=== PATIENT | male | born 1960 | race African-American/Black ===

== ENCOUNTER → 2016-10-01 | Outpatient (CLI) | payer OTHER ==
--- NOTE | 2016-10-01 21:56 | MR ---
EXAMINATION TYPE: MR lumbar spine wo con DATE OF EXAM: 10/01/2016 COMPARISON: 03/28/2015 HISTORY: LBP, LLE radic x 3 weeks, no trauma/surgery CONTRAST: 0 mL intravenous MultiHance. TECHNIQUE: Multiplanar, multisequence images of the lumbar spine were acquired. FINDINGS: L5-S1: There is moderate disc bulge with moderate anterior thecal sac compression. No AP spinal canal stenosis present. Mild facet hypertrophy is present. Neural foramen are patent. L4-L5: Minimal grade 1 spondylolisthesis is present. There is disc uncovering. This has mild anterior thecal sac contact. Facet hypertrophy is present. There is mild right foraminal narrowing. No spinal canal stenosis is present. L3-L4: No significant disc bulge or disc herniation. No spinal canal stenosis. No foraminal stenosi s. . L2-L3: Disc bulge may has some subligamentous disc extension. This has mild anterior thecal sac compr ession No spinal canal stenosis. No foraminal stenosis. L1-L2: No significant disc bulge or disc herniation. No spinal canal stenosis. No foraminal stenosi s. Neural foramen are patent. T12-L1: No significant disc bulge or disc herniation. No spinal canal stenosis. No foraminal stenos is. Neural foramen are patent. Cord terminates at the L1 level. There may be some spinal lipomatosis in the posterior spinal canal. IMPRESSION: 1. Disc bulging with moderate anterior thecal sac compression L5-S1. This appears less prominent than the comparison study. 2. Interval development of a minimal grade 1 spondylolisthesis with disc uncovering L4 on L5. 3. Mild disc bulge with anterior thecal sac compression L2-L3. No spinal canal stenosis present.
== END | disposition home or self-care (01) ==
LOC: RADMRIMAIN 19:48
PROVIDERS: ATTEND Family Medicine
DX: M51.16 Intervertebral disc disorders with radiculopathy, lumbar region (principal); M51.17 Intervertebral disc disorders with radiculopathy, lumbosacral region; M43.16 Spondylolisthesis, lumbar region
CPT/HCPCS: 72148

== ENCOUNTER 2016-12-20 11:48 | Emergency (ER) | payer OTHER ==
[2016-12-20 12:03] VITALS: BP 141/71; PULSE 70; RESP 16; TEMP 98.8
[2016-12-20] MEDS ORDERED: PROPARACAINE 0.5% OPHTH DROPS 15 ML BTL LEFT EYE STA (12:09)
--- NOTE | 2016-12-20 12:17 | ED ---
Lower Extremity Injury HPI - General Chief Complaint: Extremity Injury, Lower Stated Complaint: ankle pain Time Seen by Provider: 12/20/16 12:04 Source: patient Mode of arrival: ambulatory Limitations: no limitations - History of Present Illness Initial Comments: 56-year-old male patient presents to emergency department today with complaints of right ankle pain and swelling, as well as left eye redness. Patient states that his ankle started to hurt yesterday. He states that today the pain has worsened and the ankle has started to swell. Patient states he does have some tingling in his right heel. Patient states the pain is worse with walking. Patient denies any injury to the ankle however states that he does have osteogenesis imperfecta and has had fractures in the past without injury. Patient states that his right eye symptoms started yesterday morning when he woke up. Patient states that it feels scratchy and irritated. He states he is having yellow drainage and wakes up with crusts in the morning. He denies any use of contact lenses. Patient denies any fever, chills, headache, neck pain, back pain, chest pain, shortness of breath, dizziness, weakness, abdominal pain , nausea, vomiting, or difficulties with bowel movements or urination. - Related Data Home Medications Medication Instructions Recorded Confirmed Aspirin 81 mg PO DAILY 08/16/13 04/13/16 Carvedilol 25 mg PO BID 08/16/13 04/08/16 Furosemide [Lasix] 20 mg PO DAILY 08/16/13 04/08/16 Omeprazole [PriLOSEC] 20 mg PO AC-BRKFST 08/16/13 04/13/16 Potassium Gluconate 99 mg PO DAILY 08/16/13 04/08/16 Simvastatin [Zocor] 20 mg PO HS 08/16/13 04/13/16 Tamsulosin [Flomax] 0.4 mg PO DAILY 08/16/13 04/08/16 cloNIDine HCL [Catapres] 0.2 mg PO BID 08/16/13 04/08/16 Enalapril [Vasotec] 40 mg PO DAILY 04/08/16 04/08/16 Fenofibrate 160 mg PO DAILY 04/08/16 04/08/16 Magnesium Chloride [Slow Mag] 64 mg PO DAILY 04/08/16 04/08/16 metFORMIN HCL 1,000 mg PO BID 04/08/16 04/13/16 Previous Rx's Medication Instructions Recorded Hydrocodone/Acetaminophen [[place] 1 each PO Q4HR PRN #14 tab 03/06/14 5-325] Acetaminophen with Codeine 1 tab PO Q4H PRN #30 tab 04/13/16 [Tylenol w/codeine #3] Allergies Allergy/AdvReac Type Severity Reaction Status Date / Time No Known Allergies Allergy Verified 12/20/16 12:03 Review of Systems ROS Statement: Those systems with pertinent positive or pertinent negative responses have been documented in the HPI. ROS Other: All systems not noted in ROS Statement are negative. 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 had stent placed in tear duct. pancho eye sx for glaucoma Past Anesthesia/Blood Transfusion Reactions: No Reported Reaction Date of Last Stent Placement:: unknown Past Psychological History: Panic Disorder Smoking Status: Former smoker Past Alcohol Use History: None Reported Past Drug Use History: Marijuana - Past Family History Daughter(s) Family Medical History: Cancer Additional Family Medical History / Comment(s): leukemia Father Additional Family Medical History / Comment(s): OSTEOPOROSIS, ARTHRITIS 3 HIP RELPACEMENTS EACH SIDE Mother Family Medical History: Diabetes Mellitus General Exam Limitations: no limitations General appearance: alert, in no apparent distress Eye exam: Present: PERRL, EOMI, conjunctival injection (Right), other (No periorbital swelling. No current drainage noted. Fluorescein staining and Wood lamp examination to left eye reveals no abrasion, laceration or acute eye injury.). Absent: normal appearance, scleral icterus, periorbital swelling ENT exam: Present: normal exam, normal oropharynx, mucous membranes moist Neck exam: Present: normal inspection. Absent: tenderness, meningismus, lymphadenopathy Respiratory exam: Present: normal lung sounds bilaterally. Absent: respiratory distress, wheezes, rales, rhonchi, stridor Cardiovascular Exam: Present: regular rate, normal rhythm, normal heart sounds. Absent: systolic murmur, diastolic murmur, rubs, gallop, clicks Extremities exam: Present: full ROM, normal capillary refill, other (Mild swelling noted to the right ankle, especially around the right lateral malleolus. Cap refills less than 3 seconds. Increased pain with range of motion. Skin is normal for ethnicity, warm, and dry.). Absent: normal inspection, tenderness, pedal edema, joint swelling, calf tenderness Neurological exam: Present: alert, oriented X3, CN II-XII intact Psychiatric exam: Present: normal affect, normal mood Skin exam: Present: warm, dry, intact, normal color. Absent: rash Course Vital Signs 12/20/16 12:00 Temperature 98.8 F Pulse Rate 70 Respiratory 16 Rate Blood Pressure 141/71 O2 Sat by Pulse 100 Oximetry Medical Decision Making - Medical Decision Making 56-year-old male patient presented to emergency department today for evaluation of right ankle pain and right eye irritation. X-ray of the right ankle and foot were negative for any acute fracture however there did show some extensive degenerative changes. Patient was given an ankle stirrup brace and instructed to follow-up with the orthopedic physician in 7-10 days for repeat x-ray if pain symptoms persist. Did do a fluoroscein seen stain to the left eye which did not show any abrasion, laceration or eye injury. Patient will be treated for conjunctivitis with tobramycin drops every 4 hours. Patient instructed to follow-up with button facing machine operator if he continues to have problems. Patient instructed to return here immediately for any new, worsening, or concerning symptoms. Patient verbalizes understanding and agrees with this plan. - Radiology Data Radiology results: report reviewed, image reviewed Complete x-rays of the right ankle and right foot show osseous structures are demineralized. There is no acute fracture/dislocation evident in the right ankle. The ankle mortise appears within normal limits. There is sprang from the medial malleolus. There is spurring from the anterior aspect of the tibia. There are subchondral cystic change in the lateral malleolus. The overlying soft tissue appears unremarkable. There is no acute fracture or dislocation evident in the right foot. There is hallux valgus positioning first metatarsal phalangeal joint with mild to moderate spurring in joint space loss. There is Hind and midfoot sprain most prominent along the dorsal surface. Overlying soft tissues unremarkable. Impression by Dr. Morin shows demineralization and degenerative changes detailed above. Disposition Clinical Impression: Conjunctivitis, Right ankle pain Disposition: HOME SELF-CARE Condition: Good Instructions: Ankle Sprain (ED), Conjunctivitis (ED) Additional Instructions: Rest, ice, elevate the right lower extremity. Take pain medications as directed. Use ankle splint for comfort. If pain persists beyond 7-10 days obtained a repeat x-ray. Instill 2 drops of antibiotic solution to the left eye every 4 hours while awake, dizziness for one week. If you continue to have problems follow-up with the button facing machine operator. Follow up with her primary care physician for recheck in 1-2 days. Return here immediately for any new, worsening, or concerning symptoms. Referrals: Hudson Mantilla MD [Primary Care Provider] - 1-2 days Rosalia Grimm MD [STAFF PHYSICIAN] - 1-2 days Jackson Dias MD [Medical Doctor] - 1-2 days Time of Disposition: 12:57
--- NOTE | 2016-12-20 12:41 | XR ---
EXAMINATION TYPE: XR ankle complete RT, XR foot complete RT DATE OF EXAM: 12/20/2016 CLINICAL HISTORY: Pain TECHNIQUE: Frontal, lateral and oblique images of the right ankle and foot are obtained. COMPARISON: None. FINDINGS: Osseous structures are demineralized There is no acute fracture/dislocation evident in the right ankle. The ankle mortise appears within normal limits. There is spurring from the medial mall eolus. There is spurring from the anterior aspect of the tibia. There are subchondral cystic change i n the lateral malleolus. The overlying soft tissue appears unremarkable. There is no acute fracture or dislocation evident in the right foot. There is hallux valgus positioni ng first metatarsophalangeal joint with mild to moderate spurring and joint space loss. There is hind and midfoot spurring most prominent along dorsal surface. Overlying soft tissue is unremarkable. IMPRESSION: There is demineralization and degenerative change as detailed above.
[2016-12-20] MEDS ORDERED: TOBRAMYCIN 0.3% OPHTH DROPS 5 ML BTL LEFT EYE STA (12:52)
== END 2016-12-20 13:06 | disposition home or self-care (01) ==
LOC: EC 11:48
DX: H10.9 Unspecified conjunctivitis (principal); M25.571 Pain in right ankle and joints of right foot; K21.9 Gastro-esophageal reflux disease without esophagitis; E78.5 Hyperlipidemia, unspecified; I10 Essential (primary) hypertension; N42.9 Disorder of prostate, unspecified; F41.0 Panic disorder [episodic paroxysmal anxiety]; Z87.891 Personal history of nicotine dependence; Z79.84 Long term (current) use of oral hypoglycemic drugs; Z79.82 Long term (current) use of aspirin; Z79.899 Other long term (current) drug therapy
CPT/HCPCS: 73610; 73630; 99283; 29515; L4350

== ENCOUNTER → 2017-05-10 | Outpatient (CLI) | payer OTHER ==
--- NOTE | 2017-05-11 03:43 | MR ---
EXAMINATION TYPE: MR cervical spine wo con DATE OF EXAM: 05/10/2017 COMPARISON: NONE HISTORY: Neck Pain TECHNIQUE: Multiplanar, multisequence images of the cervical spine were acquired. Cervical vertebra have normal alignment. There is moderate narrowing of disc spaces throughout the ce rvical spine. There is spurring of the endplates. There are small posterior disc herniations at C2-3 C3-4 C5-6 C6-7. There is facet arthropathy at multiple levels. There is 7 mm spinal stenosis at C5-6. Brainstem is intact. Cervical spinal cord shows no evidence of edema. There is 6 mm spinal stenosis at C2-3. There is 7 mm spinal stenosis at C3-4. There is no compression fracture. I see no focal bone destruction. IMPRESSION: Moderate multilevel spondylosis. Multilevel cervical bony spinal stenosis. Multiple posterior cervica l disc herniations. The largest is at C2-3 on the left side. There is large uncovertebral spurring at C6-7 on the right side with neural foraminal impingement.
== END | disposition home or self-care (01) ==
LOC: RADMRIMAIN 18:04
PROVIDERS: ATTEND Psychiatry & Neurology Neurology
DX: M48.02 Spinal stenosis, cervical region (principal); M47.812 Spondylosis without myelopathy or radiculopathy, cervical region; M50.21 Other cervical disc displacement, high cervical region; M46.02 Spinal enthesopathy, cervical region; M25.80 Other specified joint disorders, unspecified joint
CPT/HCPCS: 72141

== ENCOUNTER 2018-07-07 19:14 | Emergency (ER) | payer OTHER ==
[2018-07-07 19:35] VITALS: RESP 18; TEMP 98.3
--- NOTE | 2018-07-07 20:08 | XR ---
PROCEDURE: XR forearm LT - 3V DATE AND TIME: 07/07/2018 7:55 PM CLINICAL INDICATION: PHH; Pain TECHNIQUE: Department protocol COMPARISON: 05/16/2011 FINDINGS: Architectural distortion consistent with multiple prior fracture noted as baseline. There is no fracture or malalignment, and the bones and joints and soft tissues are negative for acut e findings. 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 IMPRESSION: NO ACUTE PROCESS.
--- NOTE | 2018-07-07 20:22 | ED ---
Upper Extremity HPI - General Chief Complaint: Extremity Injury, Upper Stated Complaint: Lt arm injury Time Seen by Provider: 07/07/18 19:39 Source: patient, RN notes reviewed Mode of arrival: ambulatory Limitations: no limitations - History of Present Illness Initial Comments: 57-year-old male presents emergency Department with chief by the left arm in joshua. Patient states he was wrestling with his granddaughter in which she struck them in his left forearm. Patient states he noted swelling. Patient is concerned has he has no bowel disease and is had multiple fractures of his left arm. Patient has full range of motion of the left hand and wrist no difficulty. Denies any paresthesias. - Related Data Home Medications Medication Instructions Recorded Confirmed Aspirin 81 mg PO DAILY 08/16/13 07/07/18 Carvedilol 25 mg PO BID 08/16/13 07/07/18 Omeprazole [PriLOSEC] 20 mg PO AC-BRKFST 08/16/13 07/07/18 Potassium Gluconate 99 mg PO DAILY 08/16/13 07/07/18 Simvastatin [Zocor] 20 mg PO HS 08/16/13 07/07/18 Tamsulosin [Flomax] 0.4 mg PO DAILY 08/16/13 07/07/18 cloNIDine HCL [Catapres] 0.2 mg PO BID 08/16/13 07/07/18 Enalapril [Vasotec] 40 mg PO DAILY 04/08/16 07/07/18 Fenofibrate 160 mg PO DAILY 04/08/16 07/07/18 Magnesium Chloride [Slow Mag] 64 mg PO DAILY 04/08/16 07/07/18 metFORMIN HCL 1,000 mg PO BID 04/08/16 07/07/18 Baclofen [Lioresal] 10 mg PO TID 07/07/18 07/07/18 Celecoxib [CeleBREX] 200 mg PO DAILY 07/07/18 07/07/18 Cyanocobalamin [Vitamin B-12 1,000 mcg SQ WEEKLY 07/07/18 07/07/18 Injection] Ergocalciferol (Vitamin D2) 50,000 unit PO Q28D 07/07/18 07/07/18 [Drisdol] Furosemide [Lasix] 20 mg PO DAILY 07/07/18 07/07/18 HYDROcodone/APAP 10-325MG [[place] 1 tab PO TID 07/07/18 07/07/18 10-325] Multivitamins, Thera [Multivitamin 1 tab PO DAILY 07/07/18 07/07/18 (formulary)] Allergies Allergy/AdvReac Type Severity Reaction Status Date / Time No Known Allergies Allergy Verified 07/07/18 20:27 Review of Systems ROS Statement: Those systems with pertinent positive or pertinent negative responses have been documented in the HPI. ROS Other: All systems not noted in ROS Statement are negative. 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 had stent placed in tear duct. pancho eye sx for glaucoma Past Anesthesia/Blood Transfusion Reactions: No Reported Reaction Date of Last Stent Placement:: unknown Past Psychological History: Panic Disorder Smoking Status: Former smoker Past Alcohol Use History: None Reported Past Drug Use History: Marijuana - Past Family History Daughter(s) Family Medical History: Cancer Additional Family Medical History / Comment(s): leukemia Father Additional Family Medical History / Comment(s): OSTEOPOROSIS, ARTHRITIS 3 HIP RELPACEMENTS EACH SIDE Mother Family Medical History: Diabetes Mellitus General Exam Limitations: no limitations General appearance: alert, in no apparent distress Respiratory exam: Present: normal lung sounds bilaterally. Absent: respiratory distress, wheezes, rales, rhonchi, stridor Cardiovascular Exam: Present: regular rate, normal rhythm, normal heart sounds. Absent: systolic murmur, diastolic murmur, rubs, gallop, clicks Extremities exam: Present: other (Left forearm there is a noted area swelling, mildly tender, neurovascular intact limited range of motion of the left elbow, this is chronic) Course Vital Signs 07/07/18 19:33 Temperature 98.3 F Pulse Rate 69 Respiratory 18 Rate Blood Pressure 163/78 O2 Sat by Pulse 98 Oximetry Medical Decision Making - Medical Decision Making 57-year-old male presented for left arm injury. X-rays negative as read by radiologist. Patient we discharged return parameters were discussed. Disposition Clinical Impression: Contusion of left arm Disposition: HOME SELF-CARE Condition: Stable Instructions (If sedation given, give patient instructions): Contusion in Adults (ED) Additional Instructions: Please return to the Emergency Department if symptoms worsen or any other concerns. Is patient prescribed a controlled substance at d/c from ED?: No Referrals: Hudson Mantilla MD [Primary Care Provider] - 1-2 days Time of Disposition: 20:49
[2018-07-07 21:04] VITALS: BP 144/79; PULSE 61
== END 2018-07-07 21:04 | disposition home or self-care (01) ==
LOC: EC 19:14
DX: S40.022A Contusion of left upper arm, initial encounter (principal); E11.9 Type 2 diabetes mellitus without complications; K21.9 Gastro-esophageal reflux disease without esophagitis; N42.9 Disorder of prostate, unspecified; I10 Essential (primary) hypertension; E78.5 Hyperlipidemia, unspecified; Z95.1 Presence of aortocoronary bypass graft; Z95.5 Presence of coronary angioplasty implant and graft; Z95.818 Presence of other cardiac implants and grafts; Z96.653 Presence of artificial knee joint, bilateral; Z87.891 Personal history of nicotine dependence; Z79.82 Long term (current) use of aspirin; Z79.84 Long term (current) use of oral hypoglycemic drugs; Z79.1 Long term (current) use of non-steroidal anti-inflammatories (NSAID); Z79.891 Long term (current) use of opiate analgesic; Z79.899 Other long term (current) drug therapy; Y93.72 Activity, wrestling; W50.0XXA Accidental hit or strike by another person, initial encounter; Y92.009 Unspecified place in unspecified non-institutional (private) residence as the place of occurrence of the external cause
CPT/HCPCS: 99283

== ENCOUNTER 2019-09-21 10:06 | Emergency (ER) | payer OTHER ==
[2019-09-21 10:11] VITALS: RESP 18
--- NOTE | 2019-09-21 10:58 | ED ---
General Adult HPI - General Chief complaint: Extremity Injury, Upper Stated complaint: torn bicep Time Seen by Provider: 09/21/19 10:17 Source: patient, RN notes reviewed, old records reviewed Mode of arrival: ambulatory Limitations: no limitations - History of Present Illness Initial comments: 58 male patient presents to ED for chief complaint of left bicep and shoulder pain. Patient reports that he was playing catch with a baseball on Tuesday. Reports that he threw the ball from an awkward arm angle and began immediately having pain in his proximal bicep mid bicep and shoulder region. Reports pain with range of motion. Patient states that he was at his pain management doctor yesterday with an x-rays of the shoulder which were reportedly negative. Denies any other complaints. Systemic: Pt denies fatigue, fever/chills, rash. Pt denies weakness, night sweats, weight loss. Neuro: Pt denies headache, visual disturbances, syncope or pre-syncope. HEENT: Pt denies ocular discharge or irritation, otalgia, rhinorrhea, pharyngitis or notable lymphadenopathy. Cardiopulmonary: Pt denies chest pain, SOB, heart palpitations, dyspnea on exertion. Abdominal/GI: Pt denies abdominal pain, n/v/d. : Pt denies dysuria, burning w/ urination, frequency/urgency. Denies new onset urinary or bowel incontinence. Neuro: Pt denies new onset weakness, paresthesias. - Related Data Home Medications Medication Instructions Recorded Confirmed Aspirin 81 mg PO DAILY 08/16/13 07/07/18 Carvedilol 25 mg PO BID 08/16/13 07/07/18 Omeprazole [PriLOSEC] 20 mg PO AC-BRKFST 08/16/13 07/07/18 Potassium Gluconate 99 mg PO DAILY 08/16/13 07/07/18 Simvastatin [Zocor] 20 mg PO HS 08/16/13 07/07/18 Tamsulosin [Flomax] 0.4 mg PO DAILY 08/16/13 07/07/18 cloNIDine HCL [Catapres] 0.2 mg PO BID 08/16/13 07/07/18 Enalapril [Vasotec] 40 mg PO DAILY 04/08/16 07/07/18 Fenofibrate 160 mg PO DAILY 04/08/16 07/07/18 Magnesium Chloride [Slow Mag] 64 mg PO DAILY 04/08/16 07/07/18 metFORMIN HCL 1,000 mg PO BID 04/08/16 07/07/18 Baclofen [Lioresal] 10 mg PO TID 07/07/18 07/07/18 Celecoxib [CeleBREX] 200 mg PO DAILY 07/07/18 07/07/18 Cyanocobalamin [Vitamin B-12 1,000 mcg SQ WEEKLY 07/07/18 07/07/18 Injection] Ergocalciferol (Vitamin D2) 50,000 unit PO Q28D 07/07/18 07/07/18 [Drisdol] Furosemide [Lasix] 20 mg PO DAILY 07/07/18 07/07/18 HYDROcodone/APAP 10-325MG [[place] 1 tab PO TID 07/07/18 07/07/18 10-325] Multivitamins, Thera [Multivitamin 1 tab PO DAILY 07/07/18 07/07/18 (formulary)] Allergies Allergy/AdvReac Type Severity Reaction Status Date / Time No Known Allergies Allergy Verified 09/21/19 10:11 Review of Systems ROS Statement: Those systems with pertinent positive or pertinent negative responses have been documented in the HPI. ROS Other: All systems not noted in ROS Statement are negative. 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 had stent placed in tear duct. pancho eye sx for glaucoma Past Anesthesia/Blood Transfusion Reactions: No Reported Reaction Date of Last Stent Placement:: unknown Past Psychological History: Panic Disorder Smoking Status: Former smoker Past Alcohol Use History: None Reported Past Drug Use History: Marijuana - Past Family History Daughter(s) Family Medical History: Cancer Additional Family Medical History / Comment(s): leukemia Father Additional Family Medical History / Comment(s): OSTEOPOROSIS, ARTHRITIS 3 HIP RELPACEMENTS EACH SIDE Mother Family Medical History: Diabetes Mellitus General Exam - General Exam Comments Initial Comments: Constitutional: NAD, AOX3, Pt has pleasant affect. HEENT: NC/AT, trachea midline, neck supple, no lymphadenopathy. Posterior pharynx non erythematous, without exudates. External ears appear normal, without discharge. Mucous membranes moist. Eyes PERRLA, EOM intact. There is no scleral icterus. No pallor noted. Cardiopulmonary: RRR, no murmurs, rubs or gallops, no JVD noted. Lungs CTAB in anterior and posterior oakley. No peripheral edema. Abdominal exam: Abdomen soft and non-distended. Abdomen non-tender to palpation in all 4 quadrants. Bowel sounds active in LLQ. No hepatosplenomegaly. No ecchymosis Neuro: CN II-XII grossly intact. No nuchal rigidity. No raccon eyes, no chen sign, no hemotympanum. No cervical spinal tenderness. MSK: Left midshaft and proximal biceps region anterior shoulder mildly tender to palpation. Flexion extension of arm is intact with does cause discomfort. Active range of motion of shoulder slightly limited secondary to pain the patient is able to lift it. Neurovascularly intact. Radial pulse +2. Limitations: no limitations Course Vital Signs 09/21/19 10:09 Temperature 97.8 F Pulse Rate 63 Respiratory 18 Rate Blood Pressure 123/75 O2 Sat by Pulse 98 Oximetry Medical Decision Making - Medical Decision Making 58 male patient presents to ED for chief complaint of left bicep and shoulder pain. Patient reports that he was playing catch with a baseball on Tuesday. Reports that he threw the ball from an awkward arm angle and began immediately having pain in his proximal bicep mid bicep and shoulder region. Reports pain with range of motion. Patient states that he was at his pain management doctor yesterday with an x-rays of the shoulder which were reportedly negative. Denies any other complaints. Patient vital signs are stable, afebrile. Physical exam doesn't display mild tenderness to mid shaft biceps, proximal biceps and shoulder. Flexion and extension of left upper extremity is intact. Patient does have significant discomfort with it. Patient is able to raise his arms but this also causes discomfort to the left shoulder. Neurovascularly intact. Plain film the humerus was obtained. Fairly severe degenerative change left AC joint with marked spurring. There is additional marked spurring at the elbow joint redemonstrated. Overlying soft tissue. Within normal limits. Spoke with [facility] who recommended placing patient in a sling and they'll see him in the office. Will return to ED if condition worsens. Case discussed with Dr. Sepulveda. Disposition Clinical Impression: Arm sprain Narrative: suspected biceps injury Disposition: HOME SELF-CARE Condition: Stable Instructions (If sedation given, give patient instructions): Shoulder Sprain (ED) Additional Instructions: Continue to wear sling. Follow-up with Dr. Davis in the office today. Follow- up with primary care provider in 1-2 days. Return to ER if condition worsens. Is patient prescribed a controlled substance at d/c from ED?: No Referrals: Hudson Mantilla MD [Primary Care Provider] - 1-2 days Bryan Davis MD [STAFF PHYSICIAN] - 1-2 days
--- NOTE | 2019-09-21 11:17 | XR ---
EXAMINATION TYPE: XR humerus LT DATE OF EXAM: 09/21/2019 CLINICAL HISTORY: Pain. TECHNIQUE: Two views of the left humerus are obtained. COMPARISON: Prior left elbow x-ray May 16, 2011.. FINDINGS: There is no acute fracture or dislocation seen in the left humerus. Fairly severe degenera tive change left acromioclavicular joint with marked spurring. There is additional marked spurring a t the elbow joint redemonstrated. The overlying soft tissue appears within normal limits. IMPRESSION: As above.
[2019-09-21 12:04] VITALS: BP 133/83; PULSE 55; TEMP 98.2
== END 2019-09-21 12:00 | disposition home or self-care (01) ==
LOC: EC 10:06
DX: S43.402A Unspecified sprain of left shoulder joint, initial encounter (principal); E11.9 Type 2 diabetes mellitus without complications; K21.9 Gastro-esophageal reflux disease without esophagitis; E78.5 Hyperlipidemia, unspecified; I10 Essential (primary) hypertension; N42.9 Disorder of prostate, unspecified; F41.0 Panic disorder [episodic paroxysmal anxiety]; Z79.82 Long term (current) use of aspirin; Z79.84 Long term (current) use of oral hypoglycemic drugs; Z79.899 Other long term (current) drug therapy; Z87.891 Personal history of nicotine dependence; Z80.9 Family history of malignant neoplasm, unspecified; Z90.89 Acquired absence of other organs; Z95.5 Presence of coronary angioplasty implant and graft; Z95.1 Presence of aortocoronary bypass graft; Z96.653 Presence of artificial knee joint, bilateral; Z98.890 Other specified postprocedural states; X50.0XXA Overexertion from strenuous movement or load, initial encounter; Y93.64 Activity, baseball
CPT/HCPCS: 99284

== ENCOUNTER 2021-06-13 19:22 | Emergency (ER) | payer OTHER ==
[2021-06-13 19:28] VITALS: TEMP 98.1
[2021-06-13 20:01] LABS: Basophils % (A) 1 %; Eosinophils # (A) 0.2 k/uL (0-0.7); Eosinophils % (A) 3 %; HCT 39.4 % (39.0-53.0); HGB 13.2 gm/dL (13.0-17.5); Lymphocytes # (A) 1.6 k/uL (1.0-4.8); Lymphocytes % (A) 29 %; MCH 31.5 pg (25.0-35.0); MCHC 33.6 g/dL (31.0-37.0); MCV 93.9 fL (80.0-100.0); Mean Platelet Volume 7.7; Monocytes # (A) 0.2 k/uL (0-1.0); Monocytes % (A) 4 %; Neutrophils # (A) 3.5 k/uL (1.3-7.7); Neutrophils % (A) 63 %; Platelet Count 267 k/uL (150-450); RBC 4.19 m/uL (4.30-5.90); RDW 12.3 % (11.5-15.5); WBC 5.6 k/uL (3.8-10.6)
[2021-06-13 20:10] LABS: Albumin 4.2 g/dL (3.5-5.0); Calcium 8.8 mg/dL (8.4-10.2); Magnesium 1.7 mg/dL (1.6-2.3); Potassium 4.1 mmol/L (3.5-5.1); Total Bilirubin 0.7 mg/dL (0.2-1.3); Total Protein 7.1 g/dL (6.3-8.2)
[2021-06-13 20:22] LABS: INR 1.1 (<1.2); Prothrombin Time 12.1 sec (9.0-12.0)
[2021-06-13 20:25] LABS: Partial Thromboplastin Time 21.6 sec (22.0-30.0)
--- NOTE | 2021-06-13 21:16 | XR ---
EXAMINATION TYPE: XR chest 2V DATE OF EXAM: 06/13/2021 8:13 PM COMPARISON:Chest radiographs from 07/12/2015 TECHNIQUE: XR chest 2V Frontal and lateral views of the chest. CLINICAL INDICATION:Male, 60 years old with history of Chest Pain; FINDINGS: Lungs/Pleura: There is no evidence of pleural effusion, focal consolidation, or pneumothorax. Pulmonary vascularity: Unremarkable. Heart/mediastinum: Cardiomediastinal silhouette is unremarkable. Musculoskeletal: No acute osseous pathology. Midline sternotomy wires are noted and stable. IMPRESSION: No acute cardiopulmonary disease/process.
[2021-06-13] MEDS ORDERED: MORPHINE SULFATE 4 MG/ML SYRINGE IVP STA (22:25)
[2021-06-13] MEDS ORDERED: LABETALOL 5 MG/ML VIAL MDV IVP STA ×2 (22:43→23:35)
[2021-06-13] MEDS ORDERED: SODIUM CHLORIDE 0.9% 1,000 ML IV STA (22:43)
[2021-06-13] MEDS ORDERED: SODIUM CHLORIDE 0.9% 1,000 ML IV SCH (22:45)
[2021-06-13] MEDS ORDERED: cloNIDine HCL 0.2 MG TAB PO STA (22:48)
--- NOTE | 2021-06-13 23:16 | ED ---
Chest Pain HPI - General Chief Complaint: Chest Pain Stated Complaint: Chest Pain Time Seen by Provider: 06/13/21 22:07 Source: patient, family, RN notes reviewed, old records reviewed Mode of arrival: wheelchair Limitations: no limitations - History of Present Illness Initial Comments: a 60-year-old male DF for evaluation of chest pain. Patient does have history of dissection activity. Patient presents with both feels a bleeding chest pain left-sided chest around dinner time and been persistent since. Patient also be episode earlier in the day. Patient took a nitro night with minimal to no help. Patient still feeling occasional symptoms but they are lessening. No shortness of breath no sweating. Patient did not take his blood pressure medications today. Patient has no fevers cough or congestion. No recent travel history. Denies any trauma. MD Complaint: chest pain -: hour(s) Onset: during rest, after eating Pain Location: left chest Pain Radiation: none Severity: mild Severity scale (1-10): 3 Quality: tightness, aching Consistency: intermittent Improves With: nothing Worsens With: nothing Anginal Symptoms: other (none) Other Symptoms: palpitations Treatments Prior to Arrival: none, nitroglycerin - Related Data Home Medications Medication Instructions Recorded Confirmed Aspirin 81 mg PO DAILY 08/16/13 06/13/21 Carvedilol 25 mg PO BID 08/16/13 06/13/21 Omeprazole [PriLOSEC] 20 mg PO AC-BRKFST 08/16/13 06/13/21 Simvastatin [Zocor] 20 mg PO HS 08/16/13 06/13/21 Tamsulosin [Flomax] 0.4 mg PO BID 08/16/13 06/13/21 cloNIDine HCL [Catapres] 0.2 mg PO BID 08/16/13 06/13/21 Fenofibrate 160 mg PO DAILY 04/08/16 06/13/21 Magnesium Chloride [Slow Mag] 64 mg PO DAILY 04/08/16 06/13/21 Baclofen [Lioresal] 10 mg PO BID 07/07/18 06/13/21 Multivitamins, Thera [Multivitamin 1 tab PO DAILY 07/07/18 06/13/21 (formulary)] Atorvastatin [Lipitor] 20 mg PO HS 06/13/21 06/13/21 Furosemide [Lasix] 20 mg PO DAILY 06/13/21 06/13/21 HYDROcodone/APAP 7.5-325MG [[place] 1 tab PO TID PRN 06/13/21 06/13/21 7.5-325] Isosorbide Mononitrate ER [Imdur] 30 mg PO DAILY 06/13/21 06/13/21 Ketorolac [Toradol] 10 mg PO Q8H PRN 06/13/21 06/13/21 metFORMIN HCL 500 mg PO BID 06/13/21 06/13/21 Allergies Allergy/AdvReac Type Severity Reaction Status Date / Time No Known Allergies Allergy Verified 06/13/21 22:54 Review of Systems ROS Statement: Those systems with pertinent positive or pertinent negative responses have been documented in the HPI. ROS Other: All systems not noted in ROS Statement are negative. Past Medical History Past Medical History: Diabetes Mellitus, GERD/Reflux, Hyperlipidemia, Hypertension, Musculoskeletal Disorder, Prostate Disorder Additional Past Medical History / Comment(s): osteogenesis imperfecta, HX NARCOLEPSY, HX GLAUCOMA, HX ULCER History of Any Multi-Drug Resistant Organisms: None Reported Past Surgical History: Adenoidectomy, Coronary Bypass/CABG, Heart Catheterizati on With Stent, Joint Replacement, Tonsillectomy Additional Past Surgical History / Comment(s): per med rec- 2010 had cardiac cath had dissection at [facility] of rca /retrogradley into aorta was sent to [facility] for repair, PANCHO KNEE REPLACED, COLONOSCOPY, HEMORROIDECTOMY. had stent placed in tear duct. pancho eye sx for glaucoma Past Anesthesia/Blood Transfusion Reactions: No Reported Reaction Date of Last Stent Placement:: unknown Past Psychological History: Panic Disorder Smoking Status: Former smoker Past Alcohol Use History: Occasional Past Drug Use History: Marijuana - Past Family History Daughter(s) Family Medical History: Cancer Additional Family Medical History / Comment(s): leukemia Father Additional Family Medical History / Comment(s): OSTEOPOROSIS, ARTHRITIS 3 HIP RELPACEMENTS EACH SIDE Mother Family Medical History: Diabetes Mellitus General Exam Limitations: no limitations General appearance: alert, in no apparent distress Head exam: Present: atraumatic, normocephalic, normal inspection Eye exam: Present: normal appearance, PERRL, EOMI. Absent: scleral icterus, conjunctival injection, periorbital swelling ENT exam: Present: normal exam, mucous membranes moist Neck exam: Present: normal inspection. Absent: tenderness, meningismus, lymphadenopathy Respiratory exam: Present: normal lung sounds bilaterally. Absent: respiratory distress, wheezes, rales, rhonchi, stridor Cardiovascular Exam: Present: regular rate, normal rhythm, normal heart sounds. Absent: systolic murmur, diastolic murmur, rubs, gallop, clicks GI/Abdominal exam: Present: soft, normal bowel sounds. Absent: distended, tenderness, guarding, rebound, rigid Extremities exam: Present: normal inspection, full ROM, normal capillary refill. Absent: tenderness, pedal edema, joint swelling, calf tenderness Back exam: Present: normal inspection Neurological exam: Present: alert, oriented X3, CN II-XII intact Psychiatric exam: Present: normal affect, normal mood Skin exam: Present: warm, dry, intact, normal color. Absent: rash Course Vital Signs 06/13/21 06/13/21 06/13/21 19:24 22:52 23:38 Temperature 98.1 F Pulse Rate 56 L 68 57 L Respiratory 18 18 16 Rate Blood Pressure 192/83 197/95 192/92 O2 Sat by Pulse 100 97 97 Oximetry - Reevaluation(s) Reevaluation #1: 06/14/21 00:35 medical record is reviewed Reevaluation #2: 06/14/21 00:35 patient chest pain resolved while here in the ER and continues to remain resolved Reevaluation #3: 06/14/21 00:35 patient informed results, questions answered, patient prefers discharge and follow-up with cardiology as an outpatient Chest Pain MDM - MDM 60 male to the emergency department for chest pain, EKG and troponin are negative patient does have CTA with history of dissection that is also normal patient can be discharged home Disposition Clinical Impression: Chest pain, Atypical chest pain, Hypertension Disposition: HOME SELF-CARE Condition: Good Instructions (If sedation given, give patient instructions): Chest Pain (ED), Hypertension (ED) Is patient prescribed a controlled substance at d/c from ED?: No Referrals: Hudson Mantilla MD [Primary Care Provider] - 1-2 days
[2021-06-13] MEDS ORDERED: hydrALAZINE HCL 20 MG/ML 1 ML VIAL IVP STA (23:34)
--- NOTE | 2021-06-13 23:57 | CT ---
EXAMINATION TYPE: CT angio chest DATE OF EXAM: 06/13/2021 COMPARISON: None HISTORY: chest pain. CT DLP: 431.3 mGycm Automated exposure control for dose reduction was used. CONTRAST: Performed with IV Contrast, patient injected with 100ml mL of Isovue 370. Images obtained from the thoracic inlet to the diaphragm with IV contrast. There are Three-D postproc essed images. Heart is top normal in size. There is no pericardial effusion. There is small left pleural effusion. There is some fatty infiltration of the liver. There is mild contrast reflux into the inferior vena c zak. There is no evidence of filling defect in the pulmonary arteries. There is no mediastinal adenopathy. There are no hilar masses. Thoracic aorta shows no sign of aneurysm or dissection. There is some spurring in the thoracic spine. There is no compression fracture. There are sternal wir es. IMPRESSION: No evidence of pulmonary embolism. Small left pleural effusion. Contrast reflux into the inferior edvin a cava could relate to some degree of mild congestive heart failure.
[2021-06-14 01:01] VITALS: BP 160/80; PULSE 55; RESP 18
== END 2021-06-14 01:01 | disposition home or self-care (01) ==
LOC: EC 19:22
DX: R07.89 Other chest pain (principal); K21.9 Gastro-esophageal reflux disease without esophagitis; I10 Essential (primary) hypertension; E11.9 Type 2 diabetes mellitus without complications; Z79.83 Long term (current) use of bisphosphonates; Z87.891 Personal history of nicotine dependence
CPT/HCPCS: 36415; 93005; 80053; 83735; 84484; 85025; 85610; 85730; 71046; 71275; 99285; 96374; 96375; 96361; J2270; J0360; Q9967

== ENCOUNTER → 2021-09-24 | Outpatient (CLI) | payer OTHER ==
[~2021-09-24] MED LIST: REGADENOSON 0.4 MG/5 ML SYRINGE IV ONE
--- NOTE | 2021-09-24 10:58 | CA ---
Lexiscan Nuclear Stress Test Report Name: Willis Wilson Exam Date: 09/24/2021 09:35 Exam Location: [place] Stress Ht (in): 66 Wt (lb): 177 BSA: 1.90 Ordering Phys: Viky Martin MD Referring Phys: Queenie,, Technologist: Sami Becerril Age: 61 Gender: M : 1960 Procedure CPT: Indications: R07.9 CHEST PAIN ICD-10 Codes: Patient History: Pre Sugery, Hypertension, Diabetes Medications: many Meds past 24 hrs: Pretest Chest Pain: STRESS TEST Lexiscan Protocol Exercise Duration (min:sec): 02:[address] Depressions (mm): Angina Score: Greer Score: Resting HR (bpm): 61 Peak HR (bpm): 88 Resting BP (mmHg): 99 / 53 Peak BP (mmHg): 120 / 53 MPHR: 158 Target HR: 134 % MPHR: 56 METS: 1.0 Total Dose: Peak Dose: Atropine: Double Product: 14402 BP Response: Stress Termination: medication infused Stress Symptoms: No chest pain or symptoms Stress Summary: ECG ANALYSIS Resting ECG: Sinus rhythm with T-wave inversion in the anterolateral leads Stress ECG: Sinus rhythm without any changes from baseline CONCLUSIONS #1. Negative Lexiscan stress test #2. Report of the nuclear images to be provided by the radiologist Dr. Viky Martin MD (Electronically Signed) Final Date: 24 September 2021 10:57
--- NOTE | 2021-09-24 11:41 | NM ---
EXAMINATION TYPE: NM stress lexiscan cardiolite DATE OF EXAM: 09/24/2021 COMPARISON: NONE HISTORY: Chest pain atherosclerosis TECHNIQUE: After the intravenous administration of 9.4 mCi Tc 99m Sestamibi - Cardiolite resting SPE CT images acquired 45 minutes post injection. At peak stress 25.2 mCi Tc 99m Sestamibi - Stress images obtained 55 minutes post injection The patient was stressed with 0.4mg Lexiscan. FINDINGS: There is a small defect along the inferior lateral wall mid level to apex. This area appears to have better radiotracer distribution on the resting images. Stress-induced ischemic changes this level laney uld be suspected. Polar maps appear normal. Abnormality corresponding to the SPECT imaging is not evident. Ejection fra ction of 49% is mildly low. Normal greater than 50%. There appears to be some global hypokinesia. IMPRESSION: 1. Small stress-induced area of ischemia along the inferior lateral wall from the midportion to the c ardiac apex. 2. Hypokinesia with a low ejection fraction of 49%.
== END | disposition home or self-care (01) ==
LOC: RADNMMAIN 07:47
PROVIDERS: ATTEND Internal Medicine Cardiovascular Disease
DX: I25.9 Chronic ischemic heart disease, unspecified (principal)
CPT/HCPCS: 93017; 78452; A9500; J2785

== ENCOUNTER 2022-09-29 13:47 | Emergency (ER) | payer OTHER ==
[2022-09-29 13:59] VITALS: TEMP 98.4
[2022-09-29] MEDS ORDERED: ORPHENADRINE 30 MG/ML 2 ML VIAL IM STA (14:14)
[2022-09-29] MEDS ORDERED: KETOROLAC 15 MG/ML 1 ML VIAL IM STA (14:14)
[2022-09-29] MEDS ORDERED: LIDOCAINE 5% PATCH TOPICAL STA (14:14)
--- NOTE | 2022-09-29 15:12 | XR ---
EXAMINATION TYPE: XR ribs RT w pa chest xray DATE OF EXAM: 09/29/2022 COMPARISON: 06/13/2021 HISTORY: Right-sided rib pain TECHNIQUE: Two-view right rib supplemented with an AP chest FINDINGS: Sternotomy wires are in the midline. Right axillary surgical clips are present No displaced rib fractures are evident. No new thorax is evident. Very minimal blunting of the costop hrenic angle could suggest some underlying fluid. IMPRESSION: 1. No acute Rib fractures.
--- NOTE | 2022-09-29 15:38 | ED ---
Back Pain HPI - General Chief Complaint: Back Pain/Injury Stated Complaint: Back Pain Time Seen by Provider: 09/29/22 14:14 Source: patient Limitations: no limitations - History of Present Illness Initial Comments: Patient is a 62-year-old male who presents to the emergency department for left rib pain. Patient was bending down underneath a sink when he felt a pop in his right ribs. Patient is concerned he fractured his ribs states he has a bone disorder. He denies chest pain and shortness of breath. Denies numbness and tingling. Denies saddle anesthesia. Denies loss of bladder and bowel function. - Related Data Home Medications Medication Instructions Recorded Confirmed Aspirin 81 mg PO DAILY 08/16/13 06/13/21 Carvedilol 25 mg PO BID 08/16/13 06/13/21 Omeprazole [PriLOSEC] 20 mg PO AC-BRKFST 08/16/13 06/13/21 Simvastatin [Zocor] 20 mg PO HS 08/16/13 06/13/21 Tamsulosin [Flomax] 0.4 mg PO BID 08/16/13 06/13/21 cloNIDine HCL [Catapres] 0.2 mg PO BID 08/16/13 06/13/21 Fenofibrate 160 mg PO DAILY 04/08/16 06/13/21 Magnesium Chloride [Slow Mag] 64 mg PO DAILY 04/08/16 06/13/21 Baclofen [Lioresal] 10 mg PO BID 07/07/18 06/13/21 Multivitamins, Thera [Multivitamin 1 tab PO DAILY 07/07/18 06/13/21 (formulary)] Atorvastatin [Lipitor] 20 mg PO HS 06/13/21 06/13/21 Furosemide [Lasix] 20 mg PO DAILY 06/13/21 06/13/21 HYDROcodone/APAP 7.5-325MG [Almira 1 tab PO TID PRN 06/13/21 06/13/21 7.5-325] Isosorbide Mononitrate ER [Imdur] 30 mg PO DAILY 06/13/21 06/13/21 Ketorolac [Toradol] 10 mg PO Q8H PRN 06/13/21 06/13/21 metFORMIN HCL 500 mg PO BID 06/13/21 06/13/21 Previous Rx's Medication Instructions Recorded Acetaminophen Tab [Tylenol Tab] 500 mg PO Q4H PRN #30 tablet 09/29/22 Lidocaine 5% Patch [Lidoderm 5% 1 patch TOPICAL DAILY PRN #7 patch 09/29/22 Patch] Allergies Allergy/AdvReac Type Severity Reaction Status Date / Time No Known Allergies Allergy Verified 06/13/21 22:54 Review of Systems ROS Statement: Those systems with pertinent positive or pertinent negative responses have been documented in the HPI. ROS Other: All systems not noted in ROS Statement are negative. 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 had stent placed in tear duct. pancho eye sx for glaucoma Past Anesthesia/Blood Transfusion Reactions: No Reported Reaction Date of Last Stent Placement:: unknown Past Psychological History: Panic Disorder Smoking Status: Former smoker Past Alcohol Use History: Occasional Past Drug Use History: Marijuana - Past Family History Daughter(s) Family Medical History: Cancer Additional Family Medical History / Comment(s): leukemia Father Additional Family Medical History / Comment(s): OSTEOPOROSIS, ARTHRITIS 3 HIP RELPACEMENTS EACH SIDE Mother Family Medical History: Diabetes Mellitus General Exam Limitations: no limitations General appearance: alert, in no apparent distress Head exam: Present: atraumatic, normocephalic, normal inspection Eye exam: Present: normal appearance, PERRL, EOMI. Absent: scleral icterus, conjunctival injection, periorbital swelling Respiratory exam: Present: normal lung sounds bilaterally, chest wall tenderness (right middle ribs mild tenderness no overlying erythema, swelling, deformity). Absent: respiratory distress, wheezes, rales, rhonchi, stridor, decreased breath sounds Cardiovascular Exam: Present: regular rate, normal rhythm, normal heart sounds. Absent: systolic murmur, diastolic murmur, rubs, gallop, clicks Extremities exam: Present: normal inspection, full ROM, normal capillary refill Expanded Sensory exam: Upper Extremity Light Touch: Normal, Lower Extremity Light Touch: Normal Motor strength exam: RUE: 5, LUE: 5, RLE: 5, LLE: 5 Psychiatric exam: Present: normal affect, normal mood Skin exam: Present: warm, dry, intact, normal color. Absent: rash Course Vital Signs 09/29/22 09/29/22 13:55 15:47 Temperature 98.4 F Pulse Rate 66 55 L Respiratory 16 20 Rate Blood Pressure 104/66 118/70 O2 Sat by Pulse 98 99 Oximetry Medical Decision Making - Medical Decision Making Was pt. sent in by a medical professional or institution (VIRGILIO Myers, COMPUTER INSTALLATION ENGINEER, urgent care, hospital, or alf...) When possible be specific @ -No Did you speak to anyone other than the patient for history (EMS, parent, family, police, friend...)? What history was obtained from this source @ -No Did you review nursing and triage notes (agree or disagree)? Why? @ -I reviewed and agree with nursing and triage notes Were old charts reviewed (outside hosp., previous admission, EMS record, old EKG, old radiological studies, urgent care reports/EKG's, alf records)? Report findings @ -No old charts were reviewed Differential Diagnosis (chest pain, altered mental status, abdominal pain women, abdominal pain men, vaginal bleeding, weakness, fever, dyspnea, syncope, headache, dizziness, GI bleed, back pain, seizure, CVA, palpatations, mental health)? @ -Muscle strain, pneumothorax, fracture. This list is not meant to be all- inclusive EKG interpreted by me (3pts min.). @ -As above X-rays interpreted by me (1pt min.). @ -No no evidence of fracture CT interpreted by me (1pt min.). @ -None done U/S interpreted by me (1pt. min.). @ -None done What testing was considered but not performed or refused? (CT, X-rays, U/S, labs)? Why? @ -None What meds were considered but not given or refused? Why? @ -None Did you discuss the management of the patient with other professionals (professionals i.e. VIRGILIO Myers, COMPUTER INSTALLATION ENGINEER, lab, RT, psych nurse, social welfare clerk, cold rolling supervisor, teacher, parachute officer, case folder)? Give summary @ -No Was smoking cessation discussed for >3mins.? @ -No Was critical care preformed (if so, how long)? @ -No Were there social determinants of health that impacted care today? How? (Homelessness, low income, unemployed, alcoholism, drug addiction, aviles sportation, low edu. Level, literacy, decrease access to med. care, [facility], rehab)? @ -No Was there de-escalation of care discussed even if they declined (Discuss DNR or withdrawal of care, Hospice)? DNR status @ -No What co-morbidities impacted this encounter? (DM, HTN, Smoking, COPD, CAD, Cancer, CVA, ARF, Chemo, Hep., AIDS, mental health diagnosis, sleep apnea, morbid obesity)? @ -None Was patient admitted / discharged? Hospital course, mention meds given and route, prescriptions, significant lab abnormalities, going to OR and other pertinent info. @ -Discharged. X-ray interpreted by myself/radiology no evidence of fracture. Patient feeling very improved after symptomatic management. Patient will be discharged with supportive care at home. States he cannot have Motrin due to history of ulcers. He will take Tylenol. He also already is prescribed a muscle relaxer which he will continue to take. Patient to follow-up with primary care provider Undiagnosed new problem with uncertain prognosis? @ -No Drug Therapy requiring intensive monitoring for toxicity (Heparin, Nitro, Insulin, Cardizem)? @ -No Were any procedures done? @ -No] Diagnosis/symptom? @ -Muscle strain Acute, or Chronic, or Acute on Chronic? @ -Acute Uncomplicated (without systemic symptoms) or Complicated (systemic symptoms)? @ -Uncomplicated Side effects of treatment? @ -[No] Exacerbation, Progression, or Severe Exacerbation? @ -[No] Poses a threat to life or bodily function? How? (Chest pain, [place], SD, pneumonia, PE, COPD, DKA, ARF, appy, cholecystitis, CVA, Diverticulitis, Homicidal, Suicidal, threat to staff... and all critical care pts) @ -[No] Dr. Bah is my attending Disposition Clinical Impression: Rib pain on right side, Muscle strain Disposition: HOME SELF-CARE Condition: Good Instructions (If sedation given, give patient instructions): P.R.I.C.E. Treatment (ED) Additional Instructions: Take medication as directed. Apply warm compress to injury. Please follow-up with your primary care provider in 1-2 days. Return to the emergency department if you experience new, concerning, or worsening symptoms. Prescriptions: Lidocaine 5% Patch [Lidoderm 5% Patch] 1 patch TOPICAL DAILY PRN #7 patch PRN Reason: Pain Acetaminophen Tab [Tylenol Tab] 500 mg PO Q4H PRN #30 tablet PRN Reason: Pain Is patient prescribed a controlled substance at d/c from ED?: No Referrals: Hudson Mantilla MD [Primary Care Provider] - 1-2 days
[2022-09-29 15:49] VITALS: BP 118/70; PULSE 55; RESP 20
== END 2022-09-29 15:52 | disposition home or self-care (01) ==
LOC: EC 13:47
DX: S29.012A Strain of muscle and tendon of back wall of thorax, initial encounter (principal); E11.9 Type 2 diabetes mellitus without complications; I10 Essential (primary) hypertension; E78.5 Hyperlipidemia, unspecified; K21.9 Gastro-esophageal reflux disease without esophagitis; F12.90 Cannabis use, unspecified, uncomplicated; Z79.84 Long term (current) use of oral hypoglycemic drugs; Z79.82 Long term (current) use of aspirin; Z79.899 Other long term (current) drug therapy; Z87.891 Personal history of nicotine dependence; X50.1XXA Overexertion from prolonged static or awkward postures, initial encounter
CPT/HCPCS: 71101; 99283; 96372 ×2; J2360; J1885

== ENCOUNTER → 2023-11-10 | Outpatient (CLI) | payer OTHER ==
[2023-11-10 09:34] LABS: African American GFR (CKD) 90 (>60 ml/min/1.73 sqM); Blood Urea Nitrogen 24 mg/dL (9-20); Non-African American GFR(CKD) 78 (>60 ml/min/1.73 sqM)
--- NOTE | 2023-11-10 11:02 | CT ---
EXAMINATION TYPE: CT angio chest DATE OF EXAM: 11/10/2023 10:10 AM COMPARISON: 06/13/2021 HISTORY: Chest pain x [address] DLP: 606.0 mGycm Automated exposure control for dose reduction was used. CONTRAST: CTA scan of the thorax is performed without and with IV Contrast, patient injected with 100 mL of Iso angelique 370, pulmonary embolism protocol. 3-D processing was performed.. FINDINGS: LUNGS: The lungs are grossly clear, there is no concerning parenchymal mass or nodule identified. Th ere is a stable 5 mm fissural nodule on the left. There is a tiny left pleural effusion on mild left posterior pleural thickening unchanged compared to prior study. MEDIASTINUM: There is satisfactory en hancement of the pulmonary artery and its branches, there is no CT evidence for pulmonary embolism. There are no greater than 1 cm hilar or mediastinal lymph nodes. No pericardial effusion is seen. Question postsurgical changes in the anterior mediastinum possibly involving the thoracic aorta. Ther e is no aneurysmal dilatation of the thoracic aorta. There is either a cyst mild dilatation of the or igin of the right brachiocephalic artery are small focal dissection of the anterior distal ascending thoracic aorta. If clinically indicated, angiography might be useful for further evaluation. IMPRESSION: 1. QUESTIONABLE SURGERY INVOLVING THE THORACIC AORTA. 2. 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 3. NO PULMONARY EMBOLISM. 4. NO DEFINITE ACUTE CARDIOPULMONARY DISEASE.
== END | disposition home or self-care (01) ==
LOC: RADCTMAIN 08:50
PROVIDERS: ATTEND Internal Medicine Cardiovascular Disease
DX: I71.20 Thoracic aortic aneurysm, without rupture, unspecified (principal)
CPT/HCPCS: 82565; 84520; 71275; 36415; Q9967